=== PATIENT | female | born 1985 | race Caucasian/White ===

== ENCOUNTER 2018-09-17 22:40 | Inpatient (IN) | payer OTHER ==
[2018-09-17] MEDS ORDERED: NACL 0.9% 3 ML SYG IV (23:30)
[2018-09-17] MEDS ORDERED: BISACODYL (EC) 5 MG TAB PO (23:30)
[2018-09-17] MEDS ORDERED: ACETAMINOPHEN 325 MG TAB PO (23:30)
[2018-09-17] MEDS: SOD CHLORIDE 0.9% 1,000 ML IV (23:37)
[2018-09-17] MEDS: ONDANSETRON 4 MG INJ IV (23:41)
[2018-09-17] MEDS: HYDROmorphONE 0.5 MG/0.5 ML SYG IV (23:43)
[2018-09-17 23:54] LABS: ADD MAN DIFF? NO
[2018-09-17 23:55] LABS: BASOPHILS % 0.4 % (0.0-2.0); EOSINOPHILS # 0.1 10^3/ul (0.0-0.5); EOSINOPHILS % 1.1 % (0.0-7.0); HEMATOCRIT 39.2 % (37.0-47.0); HEMOGLOBIN 12.6 g/dl (12.0-16.0); LYMPHOCYTES # 1.6 10^3/ul (0.8-2.9); LYMPHOCYTES % 14.5 % (15.0-51.0); MEAN CORPUSCULAR HGB CONC 32.1 g/dl (32.0-37.0); MEAN CORPUSCULAR VOLUME 87.1 fl (82.0-101.0); MEAN PLATELET VOLUME 9.8 fl (7.4-10.4); MONOCYTES % 8.8 % (0.0-11.0); NEUTROPHIL # 8.2 10^3/ul (1.6-7.5); NEUTROPHILS % 74.4 % (39.0-77.0); PLATELET COUNT 316 10^3/UL (140-415); RED CELL DISTRIBUTION WIDTH 15.1 % (11.5-14.5)
[2018-09-18 00:16] LABS: AMYLASE 441 U/L (11-123)
[2018-09-18 00:20] LABS: ALANINE AMINOTRANSFERASE 82 IU/L (13-69); ALBUMIN 4.2 g/dl (3.3-4.9); ALBUMIN/GLOBULIN RATIO 1.13; ALKALINE PHOSPHATASE 83 IU/L (42-121); ANION GAP 12 (5-13); ASPARTATE AMINO TRANSFERASE 113 IU/L (15-46); BLOOD UREA NITROGEN 9 mg/dl (7-20); CALCIUM 9.4 mg/dl (8.4-10.2); CARBON DIOXIDE 27 mmol/L (21-31); CHLORIDE 100 mmol/L (97-110); CHOL/HDL RATIO 1.7 RATIO; CHOLESTEROL 178 mg/dl (100-200); CREATININE 0.42 mg/dl (0.44-1.00); Estimated GFR > 60 mL/min (>60); GLUCOSE 151 mg/dl (70-220); HDL CHOLESTEROL 103 mg/dl (34-82); LDL CHOLESTEROL,CALCULATED 56 mg/dl; MAGNESIUM 1.9 mg/dl (1.7-2.5); POTASSIUM 3.8 mmol/L (3.5-5.1); SODIUM 139 mmol/L (135-144); TOTAL PROTEIN 7.9 g/dl (6.1-8.1); TRIGLYCERIDES 97 mg/dl (0-149)
[2018-09-18 02:40] LABS: LIPASE 4043 U/L (23-300)
[2018-09-18] MEDS: HYDROmorphONE 1 MG/ML SYG IV ×7 (03:15→22:34)
[2018-09-18] MEDS: CHLORDIAZEPOXIDE 25 MG CAP PO ×4 (03:50→22:33)
[2018-09-18] MEDS ORDERED: LORAZEPAM 2 MG INJ IV (04:00)
[2018-09-18] MEDS: THIAMINE 200 MG INJ IM (04:16)
[2018-09-18] MEDS: DOCUSATE SODIUM 100 MG CAP PO (06:24)
[2018-09-18] MEDS: SOD CHLORIDE 0.9% 1,000 ML IV ×4 (06:24→22:38)
[2018-09-18 06:39] LABS: ADD MAN DIFF? NO
[2018-09-18 06:41] LABS: BASOPHILS % 0.4 % (0.0-2.0); EOSINOPHILS # 0.2 10^3/ul (0.0-0.5); EOSINOPHILS % 1.4 % (0.0-7.0); HEMATOCRIT 38.1 % (37.0-47.0); LYMPHOCYTES # 1.6 10^3/ul (0.8-2.9); LYMPHOCYTES % 14.8 % (15.0-51.0); MEAN CORPUSCULAR HEMOGLOBIN 27.9 pg (29.0-33.0); MEAN CORPUSCULAR HGB CONC 31.5 g/dl (32.0-37.0); MEAN CORPUSCULAR VOLUME 88.6 fl (82.0-101.0); MEAN PLATELET VOLUME 10.4 fl (7.4-10.4); MONOCYTES % 9.7 % (0.0-11.0); NEUTROPHIL # 7.7 10^3/ul (1.6-7.5); NEUTROPHILS % 73.1 % (39.0-77.0); PLATELET COUNT 296 10^3/UL (140-415); RED CELL DISTRIBUTION WIDTH 15.6 % (11.5-14.5)
[2018-09-18 06:41] LABS: WHITE BLOOD COUNT 10.5 10^3/ul (4.8-10.8)
[2018-09-18 07:07] LABS: ALANINE AMINOTRANSFERASE 76 IU/L (13-69); ALBUMIN/GLOBULIN RATIO 1.17; ALKALINE PHOSPHATASE 72 IU/L (42-121); ANION GAP 11 (5-13); ASPARTATE AMINO TRANSFERASE 100 IU/L (15-46); BILIRUBIN,INDIRECT 0.9 mg/dl (0-1.1); BILIRUBIN,TOTAL 0.9 mg/dl (0.2-1.3); BLOOD UREA NITROGEN 11 mg/dl (7-20); CALCIUM 9.2 mg/dl (8.4-10.2); CARBON DIOXIDE 29 mmol/L (21-31); CHLORIDE 101 mmol/L (97-110); CREATININE 0.46 mg/dl (0.44-1.00); Estimated GFR > 60 mL/min (>60); GLUCOSE 134 mg/dl (70-220); SODIUM 141 mmol/L (135-144); TOTAL PROTEIN 7.4 g/dl (6.1-8.1)
[2018-09-18 07:21] LABS: LIPASE 2944 U/L (23-300)
[2018-09-18 07:49] LABS: HEMOGLOBIN A1C 5.3 % (0-5.9)
[2018-09-18] MEDS: MULTIVITAMINS THERAPEUTIC TAB PO (08:43)
[2018-09-18] MEDS: FOLIC ACID 1 MG TAB PO (08:43)
[2018-09-18 09:03] LABS: ETHANOL < 10.0 mg/dl (0-0)
[2018-09-18] MEDS: ONDANSETRON 4 MG INJ IV (16:14)
[2018-09-19] MEDS: HYDROmorphONE 1 MG/ML SYG IV ×7 (01:54→21:47)
[2018-09-19] MEDS: CHLORDIAZEPOXIDE 25 MG CAP PO ×5 (04:37→21:47)
[2018-09-19] MEDS: SOD CHLORIDE 0.9% 1,000 ML IV ×4 (05:00→23:14)
[2018-09-19 05:58] LABS: ADD MAN DIFF? NO; BASOPHILS % 0.4 % (0.0-2.0); EOSINOPHILS # 0.2 10^3/ul (0.0-0.5); EOSINOPHILS % 2.5 % (0.0-7.0); HEMATOCRIT 32.4 % (37.0-47.0); HEMOGLOBIN 10.3 g/dl (12.0-16.0); LYMPHOCYTES # 2.2 10^3/ul (0.8-2.9); LYMPHOCYTES % 23.2 % (15.0-51.0); MEAN CORPUSCULAR HEMOGLOBIN 28.5 pg (29.0-33.0); MEAN CORPUSCULAR HGB CONC 31.8 g/dl (32.0-37.0); MEAN CORPUSCULAR VOLUME 89.5 fl (82.0-101.0); MEAN PLATELET VOLUME 10.6 fl (7.4-10.4); MONOCYTE # 0.8 10^3/ul (0.3-0.9); MONOCYTES % 8.4 % (0.0-11.0); NEUTROPHILS % 64.9 % (39.0-77.0); PLATELET COUNT 262 10^3/UL (140-415); RED BLOOD COUNT 3.62 10^6/ul (4.20-5.40); RED CELL DISTRIBUTION WIDTH 15.4 % (11.5-14.5)
[2018-09-19 05:58] LABS: WHITE BLOOD COUNT 9.3 10^3/ul (4.8-10.8)
[2018-09-19 06:41] LABS: AMYLASE 217 U/L (11-123)
[2018-09-19 06:43] LABS: LIPASE 1337 U/L (23-300)
[2018-09-19 06:49] LABS: PHOSPHORUS 4.6 mg/dl (2.5-4.9)
[2018-09-19 06:49] LABS: MAGNESIUM 1.9 mg/dl (1.7-2.5)
[2018-09-19 06:51] LABS: ALANINE AMINOTRANSFERASE 63 IU/L (13-69); ALBUMIN 3.4 g/dl (3.3-4.9); ALBUMIN/GLOBULIN RATIO 1.06; ALKALINE PHOSPHATASE 63 IU/L (42-121); ANION GAP 12 (5-13); ASPARTATE AMINO TRANSFERASE 54 IU/L (15-46); BILIRUBIN,INDIRECT 0.7 mg/dl (0-1.1); BILIRUBIN,TOTAL 0.7 mg/dl (0.2-1.3); BLOOD UREA NITROGEN 12 mg/dl (7-20); CALCIUM 8.4 mg/dl (8.4-10.2); CARBON DIOXIDE 23 mmol/L (21-31); CHLORIDE 103 mmol/L (97-110); Estimated GFR > 60 mL/min (>60); GLUCOSE 80 mg/dl (70-220); POTASSIUM 3.4 mmol/L (3.5-5.1); SODIUM 138 mmol/L (135-144); TOTAL PROTEIN 6.6 g/dl (6.1-8.1)
[2018-09-19 07:04] LABS: C-REACTIVE PROTEIN 13.2 mg/dl (0.0-0.9)
[2018-09-19] MEDS: MULTIVITAMINS THERAPEUTIC TAB PO (08:39)
[2018-09-19] MEDS: FOLIC ACID 1 MG TAB PO (08:39)
[2018-09-19] MEDS: THIAMINE 200 MG INJ IM (09:49)
[2018-09-19] MEDS: POTASSIUM CHLORIDE 100 ML IVPB (11:15)
[2018-09-19] MEDS: ONDANSETRON 4 MG INJ IV ×2 (14:48→21:47)
[2018-09-20] MEDS: HYDROmorphONE 1 MG/ML SYG IV ×5 (01:08→15:21)
[2018-09-20] MEDS: DOCUSATE SODIUM 100 MG CAP PO (01:08)
[2018-09-20] MEDS: ONDANSETRON 4 MG INJ IV ×2 (05:13→12:23)
[2018-09-20] MEDS: SOD CHLORIDE 0.9% 1,000 ML IV ×3 (05:13→17:44)
[2018-09-20] MEDS: CHLORDIAZEPOXIDE 25 MG CAP PO ×3 (05:14→12:22)
[2018-09-20 06:12] LABS: ADD MAN DIFF? NO
[2018-09-20 06:33] LABS: WHITE BLOOD COUNT 8.6 10^3/ul (4.8-10.8)
[2018-09-20 06:33] LABS: BASOPHILS % 0.3 % (0.0-2.0); EOSINOPHILS # 0.2 10^3/ul (0.0-0.5); EOSINOPHILS % 2.6 % (0.0-7.0); HEMATOCRIT 31.5 % (37.0-47.0); LYMPHOCYTES # 1.8 10^3/ul (0.8-2.9); LYMPHOCYTES % 20.5 % (15.0-51.0); MEAN CORPUSCULAR HEMOGLOBIN 28.6 pg (29.0-33.0); MEAN CORPUSCULAR HGB CONC 31.7 g/dl (32.0-37.0); MEAN PLATELET VOLUME 10.5 fl (7.4-10.4); MONOCYTE # 0.7 10^3/ul (0.3-0.9); MONOCYTES % 8.2 % (0.0-11.0); NEUTROPHIL # 5.8 10^3/ul (1.6-7.5); NEUTROPHILS % 67.6 % (39.0-77.0); PLATELET COUNT 270 10^3/UL (140-415); RED CELL DISTRIBUTION WIDTH 15.2 % (11.5-14.5)
[2018-09-20 06:49] LABS: ALANINE AMINOTRANSFERASE 58 IU/L (13-69); ALBUMIN 3.4 g/dl (3.3-4.9); ALBUMIN/GLOBULIN RATIO 1.03; ALKALINE PHOSPHATASE 71 IU/L (42-121); ANION GAP 13 (5-13); ASPARTATE AMINO TRANSFERASE 58 IU/L (15-46); BILIRUBIN,INDIRECT 0.4 mg/dl (0-1.1); BILIRUBIN,TOTAL 0.4 mg/dl (0.2-1.3); BLOOD UREA NITROGEN 7 mg/dl (7-20); CALCIUM 8.7 mg/dl (8.4-10.2); CARBON DIOXIDE 24 mmol/L (21-31); CHLORIDE 102 mmol/L (97-110); Estimated GFR > 60 mL/min (>60); GLUCOSE 81 mg/dl (70-220); POTASSIUM 3.5 mmol/L (3.5-5.1); SODIUM 139 mmol/L (135-144); TOTAL PROTEIN 6.7 g/dl (6.1-8.1)
[2018-09-20 07:04] LABS: LIPASE 1075 U/L (23-300)
[2018-09-20 07:04] LABS: AMYLASE 116 U/L (11-123)
[2018-09-20 07:06] LABS: MAGNESIUM 1.9 mg/dl (1.7-2.5)
[2018-09-20] MEDS: MULTIVITAMINS THERAPEUTIC TAB PO (09:00)
[2018-09-20] MEDS: FOLIC ACID 1 MG TAB PO (09:00)
[2018-09-20] MEDS: THIAMINE 200 MG INJ IM (12:27)
== END 2018-09-20 18:37 | disposition home or self-care (01) | DRG 440 ==
LOC: 2NE 22:40
DX: K85.20 Alcohol induced acute pancreatitis without necrosis or infection (principal); E66.01 Morbid (severe) obesity due to excess calories; F10.20 Alcohol dependence, uncomplicated; Y90.0 Blood alcohol level of less than 20 mg/100 ml; Z68.39 Body mass index [BMI] 39.0-39.9, adult; Z90.49 Acquired absence of other specified parts of digestive tract
CPT/HCPCS: 80053; 80061; 80307; 82150; 83036; 83690; 83735; 84100; 84443; 85025; 86140

== ENCOUNTER 2018-11-09 20:10 | Inpatient (IN) | payer OTHER ==
[2018-11-09] MEDS: ONDANSETRON 4 MG INJ IV (20:17)
[2018-11-09] MEDS: HYDROmorphONE 1 MG/ML SYG IV ×2 (20:17→22:46)
[2018-11-09] MEDS ORDERED: ONDANSETRON 4 MG INJ IV ×2 (20:30→21:30)
[2018-11-09] MEDS ORDERED: ACETAMINOPHEN 325 MG TAB PO (20:30)
[2018-11-09] MEDS ORDERED: DOCUSATE SODIUM 100 MG CAP PO (21:30)
[2018-11-09] MEDS ORDERED: NACL 0.9% 3 ML SYG IV (21:30)
[2018-11-09] MEDS ORDERED: HYDROmorphONE 0.5 MG/0.5 ML SYG IV (21:30)
[2018-11-09] MEDS ORDERED: BISACODYL (EC) 5 MG TAB PO (21:30)
[2018-11-09] MEDS ORDERED: hydrALAzine 20 MG INJ IV (22:30)
[2018-11-09] MEDS: MULTIVITAMINS 10 ML, THIAMINE 100 MG, FOLIC ACID 1 MG in SOD CHLORIDE 0.9% 1,000 ML IVPB (22:57)
[2018-11-09] MEDS: AMLODIPINE 2.5 MG TAB PO (23:28)
[2018-11-09] MEDS: METOCLOPRAMIDE 10 MG INJ IV (23:28)
[2018-11-10 00:02] LABS: ADD MAN DIFF? NO
[2018-11-10 00:04] LABS: BASOPHIL # 0.1 10^3/ul (0.0-0.1); BASOPHILS % 0.4 % (0.0-2.0); EOSINOPHILS # 0.1 10^3/ul (0.0-0.5); EOSINOPHILS % 0.8 % (0.0-7.0); HEMATOCRIT 38.5 % (37.0-47.0); HEMOGLOBIN 12.7 g/dl (12.0-16.0); LYMPHOCYTES # 1.5 10^3/ul (0.8-2.9); LYMPHOCYTES % 10.8 % (15.0-51.0); MEAN CORPUSCULAR HEMOGLOBIN 29.2 pg (29.0-33.0); MEAN CORPUSCULAR VOLUME 88.5 fl (82.0-101.0); MEAN PLATELET VOLUME 9.4 fl (7.4-10.4); MONOCYTE # 0.8 10^3/ul (0.3-0.9); MONOCYTES % 5.6 % (0.0-11.0); NEUTROPHIL # 11.2 10^3/ul (1.6-7.5); NEUTROPHILS % 81.8 % (39.0-77.0); PLATELET COUNT 331 10^3/UL (140-415); RED BLOOD COUNT 4.35 10^6/ul (4.20-5.40); RED CELL DISTRIBUTION WIDTH 13.8 % (11.5-14.5)
[2018-11-10 00:04] LABS: WHITE BLOOD COUNT 13.7 10^3/ul (4.8-10.8)
[2018-11-10 00:23] LABS: ALANINE AMINOTRANSFERASE 136 IU/L (13-69); ALKALINE PHOSPHATASE 141 IU/L (42-121); ANION GAP 11 (5-13); ASPARTATE AMINO TRANSFERASE 260 IU/L (15-46); BILIRUBIN,INDIRECT 1.4 mg/dl (0-1.1); BLOOD UREA NITROGEN 9 mg/dl (7-20); CALCIUM 9.4 mg/dl (8.4-10.2); CARBON DIOXIDE 26 mmol/L (21-31); CHLORIDE 99 mmol/L (97-110); CREATININE 0.54 mg/dl (0.44-1.00); Estimated GFR > 60 mL/min (>60); GLUCOSE 148 mg/dl (70-220); SODIUM 136 mmol/L (135-144)
[2018-11-10 00:24] LABS: ALBUMIN 4.4 g/dl (3.3-4.9); ALBUMIN/GLOBULIN RATIO 1.04; BILIRUBIN,TOTAL 1.4 mg/dl (0.2-1.3); TOTAL PROTEIN 8.6 g/dl (6.1-8.1)
[2018-11-10 00:26] LABS: ETHANOL < 10.0 mg/dl (0-0)
[2018-11-10 00:46] LABS: LIPASE 4360 U/L (23-300)
[2018-11-10] MEDS: HYDROmorphONE 1 MG/ML SYG IV ×7 (02:24→22:46)
[2018-11-10] MEDS: CHLORDIAZEPOXIDE 25 MG CAP PO ×4 (02:26→21:13)
[2018-11-10] MEDS: CIPROFLOXACIN 250 MG TAB PO ×3 (02:26→17:31)
[2018-11-10] MEDS: SOD CHLORIDE 0.9% 1,000 ML IV ×5 (03:53→23:53)
[2018-11-10] MEDS: ENALAPRILAT 1.25 MG INJ IV (04:17)
[2018-11-10] MEDS: ONDANSETRON 4 MG INJ IV ×2 (04:38→14:24)
[2018-11-10 05:49] LABS: AMPHETAMINE/METHAMPHETAMINE Negative (NEGATIVE); BARBITURATES Negative (NEGATIVE); BENZODIAZEPINES Negative (NEGATIVE); CANNABINOIDS Positive (NEGATIVE); COCAINE Negative (NEGATIVE); OPIATES Positive (NEGATIVE)
[2018-11-10 06:59] LABS: ADD MAN DIFF? NO
[2018-11-10 07:03] LABS: WHITE BLOOD COUNT 12.3 10^3/ul (4.8-10.8)
[2018-11-10 07:03] LABS: BASOPHIL # 0.1 10^3/ul (0.0-0.1); BASOPHILS % 0.4 % (0.0-2.0); EOSINOPHILS # 0.2 10^3/ul (0.0-0.5); EOSINOPHILS % 1.2 % (0.0-7.0); HEMATOCRIT 38.5 % (37.0-47.0); HEMOGLOBIN 12.5 g/dl (12.0-16.0); LYMPHOCYTES # 1.1 10^3/ul (0.8-2.9); LYMPHOCYTES % 8.7 % (15.0-51.0); MEAN CORPUSCULAR HEMOGLOBIN 28.9 pg (29.0-33.0); MEAN CORPUSCULAR HGB CONC 32.5 g/dl (32.0-37.0); MEAN CORPUSCULAR VOLUME 89.1 fl (82.0-101.0); MEAN PLATELET VOLUME 10.3 fl (7.4-10.4); MONOCYTE # 0.7 10^3/ul (0.3-0.9); MONOCYTES % 5.4 % (0.0-11.0); NEUTROPHIL # 10.3 10^3/ul (1.6-7.5); NEUTROPHILS % 83.5 % (39.0-77.0); PLATELET COUNT 326 10^3/UL (140-415); RED BLOOD COUNT 4.32 10^6/ul (4.20-5.40); RED CELL DISTRIBUTION WIDTH 13.8 % (11.5-14.5)
[2018-11-10 07:29] LABS: ALANINE AMINOTRANSFERASE 130 IU/L (13-69); ALBUMIN 4.3 g/dl (3.3-4.9); ALBUMIN/GLOBULIN RATIO 1.16; ALKALINE PHOSPHATASE 123 IU/L (42-121); ANION GAP 15 (5-13); ASPARTATE AMINO TRANSFERASE 197 IU/L (15-46); BILIRUBIN,INDIRECT 1.5 mg/dl (0-1.1); BILIRUBIN,TOTAL 1.5 mg/dl (0.2-1.3); BLOOD UREA NITROGEN 10 mg/dl (7-20); CALCIUM 9.3 mg/dl (8.4-10.2); CARBON DIOXIDE 22 mmol/L (21-31); CHLORIDE 100 mmol/L (97-110); CREATININE 0.55 mg/dl (0.44-1.00); Estimated GFR > 60 mL/min (>60); GLUCOSE 169 mg/dl (70-220); POTASSIUM 3.5 mmol/L (3.5-5.1); SODIUM 137 mmol/L (135-144)
[2018-11-10 07:48] LABS: LIPASE 3255 U/L (23-300)
[2018-11-10] MEDS: IOHEXOL 14.3 MG(I)/ML (ADULT) BTL PO (08:55)
[2018-11-10] MEDS: FOLIC ACID 1 MG TAB PO (08:59)
[2018-11-10] MEDS: MULTIVITAMINS THERAPEUTIC TAB PO (08:59)
[2018-11-10] MEDS: THIAMINE 100 MG TAB PO (08:59)
[2018-11-10] MEDS: IOHEXOL 300MG/ML 150 ML BTL (10:29)
[2018-11-10] MEDS: SOD CHLORIDE 0.9% 100 ML (10:29)
[2018-11-10] MEDS: ACETAMINOPHEN 325 MG TAB PO (10:43)
[2018-11-10] MEDS: LORAZEPAM 2 MG INJ IV ×3 (10:43→21:13)
[2018-11-10] MEDS: PIPER-TAZO 3.375 GM IV (PMX) 100 ML IVPB ×2 (16:44→22:23)
[2018-11-11] MEDS: CHLORDIAZEPOXIDE 25 MG CAP PO ×6 (00:27→23:35)
[2018-11-11] MEDS: LORAZEPAM 2 MG INJ IV ×6 (00:30→23:35)
[2018-11-11] MEDS: HYDROmorphONE 1 MG/ML SYG IV ×7 (01:55→21:41)
[2018-11-11] MEDS: SOD CHLORIDE 0.9% 1,000 ML IV ×4 (01:56→20:18)
[2018-11-11] MEDS: PIPER-TAZO 3.375 GM IV (PMX) 100 ML IVPB ×3 (05:04→21:56)
[2018-11-11] MEDS: CIPROFLOXACIN 250 MG TAB PO ×2 (05:04→16:50)
[2018-11-11 07:22] LABS: ADD MAN DIFF? NO
[2018-11-11 07:26] LABS: BASOPHIL # 0.1 10^3/ul (0.0-0.1); BASOPHILS % 0.4 % (0.0-2.0); EOSINOPHILS # 0.2 10^3/ul (0.0-0.5); EOSINOPHILS % 1.4 % (0.0-7.0); HEMATOCRIT 35.3 % (37.0-47.0); HEMOGLOBIN 11.6 g/dl (12.0-16.0); LYMPHOCYTES # 1.3 10^3/ul (0.8-2.9); LYMPHOCYTES % 9.7 % (15.0-51.0); MEAN CORPUSCULAR HEMOGLOBIN 29.3 pg (29.0-33.0); MEAN CORPUSCULAR HGB CONC 32.9 g/dl (32.0-37.0); MEAN CORPUSCULAR VOLUME 89.1 fl (82.0-101.0); MEAN PLATELET VOLUME 9.8 fl (7.4-10.4); MONOCYTE # 0.9 10^3/ul (0.3-0.9); MONOCYTES % 6.3 % (0.0-11.0); NEUTROPHIL # 11.2 10^3/ul (1.6-7.5); NEUTROPHILS % 81.4 % (39.0-77.0); PLATELET COUNT 292 10^3/UL (140-415); RED BLOOD COUNT 3.96 10^6/ul (4.20-5.40); RED CELL DISTRIBUTION WIDTH 13.9 % (11.5-14.5)
[2018-11-11 07:26] LABS: WHITE BLOOD COUNT 13.7 10^3/ul (4.8-10.8)
[2018-11-11 07:52] LABS: ALANINE AMINOTRANSFERASE 113 IU/L (13-69); ALBUMIN 3.8 g/dl (3.3-4.9); ALKALINE PHOSPHATASE 129 IU/L (42-121); ANION GAP 11 (5-13); ASPARTATE AMINO TRANSFERASE 114 IU/L (15-46); BILIRUBIN,INDIRECT 0.8 mg/dl (0-1.1); BILIRUBIN,TOTAL 0.8 mg/dl (0.2-1.3); BLOOD UREA NITROGEN 8 mg/dl (7-20); CALCIUM 8.8 mg/dl (8.4-10.2); CARBON DIOXIDE 23 mmol/L (21-31); CHLORIDE 103 mmol/L (97-110); CREATININE 0.48 mg/dl (0.44-1.00); Estimated GFR > 60 mL/min (>60); GLUCOSE 116 mg/dl (70-220); POTASSIUM 3.8 mmol/L (3.5-5.1); SODIUM 137 mmol/L (135-144); TOTAL PROTEIN 7.6 g/dl (6.1-8.1)
[2018-11-11] MEDS: FOLIC ACID 1 MG TAB PO (08:53)
[2018-11-11] MEDS: THIAMINE 100 MG TAB PO (08:53)
[2018-11-11] MEDS: MULTIVITAMINS THERAPEUTIC TAB PO (08:53)
[2018-11-12] MEDS: HYDROmorphONE 1 MG/ML SYG IV ×7 (00:48→20:04)
[2018-11-12] MEDS: SOD CHLORIDE 0.9% 1,000 ML IV ×3 (03:56→22:00)
[2018-11-12 04:54] LABS: ADD MAN DIFF? NO
[2018-11-12 05:00] LABS: BASOPHIL # 0.1 10^3/ul (0.0-0.1); BASOPHILS % 0.5 % (0.0-2.0); EOSINOPHILS # 0.3 10^3/ul (0.0-0.5); EOSINOPHILS % 2.7 % (0.0-7.0); HEMATOCRIT 32.3 % (37.0-47.0); HEMOGLOBIN 10.3 g/dl (12.0-16.0); LYMPHOCYTES # 1.3 10^3/ul (0.8-2.9); LYMPHOCYTES % 13.7 % (15.0-51.0); MEAN CORPUSCULAR HEMOGLOBIN 28.9 pg (29.0-33.0); MEAN CORPUSCULAR HGB CONC 31.9 g/dl (32.0-37.0); MEAN CORPUSCULAR VOLUME 90.7 fl (82.0-101.0); MEAN PLATELET VOLUME 9.7 fl (7.4-10.4); MONOCYTE # 0.7 10^3/ul (0.3-0.9); MONOCYTES % 6.8 % (0.0-11.0); NEUTROPHIL # 7.3 10^3/ul (1.6-7.5); NEUTROPHILS % 75.5 % (39.0-77.0); PLATELET COUNT 277 10^3/UL (140-415); RED BLOOD COUNT 3.56 10^6/ul (4.20-5.40); RED CELL DISTRIBUTION WIDTH 13.9 % (11.5-14.5)
[2018-11-12 05:00] LABS: WHITE BLOOD COUNT 9.7 10^3/ul (4.8-10.8)
[2018-11-12] MEDS: PIPER-TAZO 3.375 GM IV (PMX) 100 ML IVPB ×3 (05:16→21:32)
[2018-11-12] MEDS: CIPROFLOXACIN 250 MG TAB PO (05:16)
[2018-11-12 05:29] LABS: ALANINE AMINOTRANSFERASE 85 IU/L (13-69); ALBUMIN 3.4 g/dl (3.3-4.9); ALBUMIN/GLOBULIN RATIO 0.91; ALKALINE PHOSPHATASE 100 IU/L (42-121); ANION GAP 7 (5-13); ASPARTATE AMINO TRANSFERASE 69 IU/L (15-46); BILIRUBIN,INDIRECT 0.5 mg/dl (0-1.1); BILIRUBIN,TOTAL 0.5 mg/dl (0.2-1.3); BLOOD UREA NITROGEN 7 mg/dl (7-20); CALCIUM 8.7 mg/dl (8.4-10.2); CARBON DIOXIDE 26 mmol/L (21-31); CHLORIDE 106 mmol/L (97-110); CREATININE 0.45 mg/dl (0.44-1.00); Estimated GFR > 60 mL/min (>60); GLUCOSE 137 mg/dl (70-220); SODIUM 139 mmol/L (135-144); TOTAL PROTEIN 7.1 g/dl (6.1-8.1)
[2018-11-12 05:30] LABS: LIPASE 890 U/L (23-300)
[2018-11-12] MEDS: FOLIC ACID 1 MG TAB PO (09:00)
[2018-11-12] MEDS: MULTIVITAMINS THERAPEUTIC TAB PO (09:00)
[2018-11-12] MEDS: THIAMINE 100 MG TAB PO (09:00)
[2018-11-12] MEDS: DOCUSATE SODIUM 100 MG CAP PO ×2 (11:00→20:02)
[2018-11-12] MEDS ORDERED: HYDROmorphONE 0.5 MG/0.5 ML SYG (12:00)
[2018-11-12] MEDS ORDERED: HYDROmorphONE 1 MG/ML SYG (12:15)
[2018-11-12] MEDS: HYDROCODONE/APAP (7.5/325) TAB PO ×2 (12:18→21:32)
[2018-11-12] MEDS: LORAZEPAM 2 MG INJ IV ×2 (13:29→22:46)
[2018-11-12] MEDS: CHLORDIAZEPOXIDE 25 MG CAP PO ×3 (13:33→20:02)
[2018-11-13] MEDS: HYDROmorphONE 1 MG/ML SYG IV ×6 (00:41→23:18)
[2018-11-13] MEDS: SOD CHLORIDE 0.9% 1,000 ML IV ×3 (03:24→21:16)
[2018-11-13] MEDS: PIPER-TAZO 3.375 GM IV (PMX) 100 ML IVPB ×3 (05:47→21:16)
[2018-11-13 06:01] LABS: ADD MAN DIFF? NO
[2018-11-13 06:08] LABS: BASOPHIL # 0.1 10^3/ul (0.0-0.1); BASOPHILS % 0.9 % (0.0-2.0); EOSINOPHILS # 0.3 10^3/ul (0.0-0.5); EOSINOPHILS % 3.7 % (0.0-7.0); HEMOGLOBIN 9.7 g/dl (12.0-16.0); LYMPHOCYTES # 1.4 10^3/ul (0.8-2.9); LYMPHOCYTES % 16.9 % (15.0-51.0); MEAN CORPUSCULAR HEMOGLOBIN 28.6 pg (29.0-33.0); MEAN CORPUSCULAR HGB CONC 31.3 g/dl (32.0-37.0); MEAN CORPUSCULAR VOLUME 91.4 fl (82.0-101.0); MEAN PLATELET VOLUME 9.7 fl (7.4-10.4); MONOCYTE # 0.7 10^3/ul (0.3-0.9); MONOCYTES % 8.9 % (0.0-11.0); NEUTROPHIL # 5.5 10^3/ul (1.6-7.5); NEUTROPHILS % 68.7 % (39.0-77.0); PLATELET COUNT 264 10^3/UL (140-415); RED BLOOD COUNT 3.39 10^6/ul (4.20-5.40)
[2018-11-13 06:08] LABS: WHITE BLOOD COUNT 8.1 10^3/ul (4.8-10.8)
[2018-11-13 06:40] LABS: ALANINE AMINOTRANSFERASE 72 IU/L (13-69); ALBUMIN 3.3 g/dl (3.3-4.9); ALBUMIN/GLOBULIN RATIO 0.94; ALKALINE PHOSPHATASE 86 IU/L (42-121); ANION GAP 9 (5-13); ASPARTATE AMINO TRANSFERASE 72 IU/L (15-46); BILIRUBIN,INDIRECT 0.3 mg/dl (0-1.1); BILIRUBIN,TOTAL 0.3 mg/dl (0.2-1.3); BLOOD UREA NITROGEN 4 mg/dl (7-20); CALCIUM 8.3 mg/dl (8.4-10.2); CARBON DIOXIDE 26 mmol/L (21-31); CHLORIDE 107 mmol/L (97-110); CREATININE 0.44 mg/dl (0.44-1.00); Estimated GFR > 60 mL/min (>60); GLUCOSE 125 mg/dl (70-220); POTASSIUM 3.7 mmol/L (3.5-5.1); SODIUM 142 mmol/L (135-144); TOTAL PROTEIN 6.8 g/dl (6.1-8.1)
[2018-11-13] MEDS: HYDROCODONE/APAP (7.5/325) TAB PO ×2 (07:29→17:42)
[2018-11-13] MEDS: FOLIC ACID 1 MG TAB PO (08:43)
[2018-11-13] MEDS: MULTIVITAMINS THERAPEUTIC TAB PO (08:43)
[2018-11-13] MEDS: THIAMINE 100 MG TAB PO (08:43)
[2018-11-13] MEDS: DOCUSATE SODIUM 100 MG CAP PO ×2 (08:43→21:16)
[2018-11-14] MEDS: HYDROmorphONE 1 MG/ML SYG IV (03:44)
[2018-11-14] MEDS: PIPER-TAZO 3.375 GM IV (PMX) 100 ML IVPB (05:49)
[2018-11-14] MEDS: SOD CHLORIDE 0.9% 1,000 ML IV (05:49)
[2018-11-14 06:19] LABS: ADD MAN DIFF? NO
[2018-11-14 06:22] LABS: BASOPHIL # 0.1 10^3/ul (0.0-0.1); BASOPHILS % 0.5 % (0.0-2.0); EOSINOPHILS # 0.2 10^3/ul (0.0-0.5); EOSINOPHILS % 2.2 % (0.0-7.0); HEMATOCRIT 29.3 % (37.0-47.0); HEMOGLOBIN 9.5 g/dl (12.0-16.0); LYMPHOCYTES # 1.4 10^3/ul (0.8-2.9); LYMPHOCYTES % 14.6 % (15.0-51.0); MEAN CORPUSCULAR HEMOGLOBIN 29.8 pg (29.0-33.0); MEAN CORPUSCULAR HGB CONC 32.4 g/dl (32.0-37.0); MEAN CORPUSCULAR VOLUME 91.8 fl (82.0-101.0); MEAN PLATELET VOLUME 10.5 fl (7.4-10.4); MONOCYTE # 0.9 10^3/ul (0.3-0.9); MONOCYTES % 9.2 % (0.0-11.0); NEUTROPHIL # 6.9 10^3/ul (1.6-7.5); NEUTROPHILS % 72.7 % (39.0-77.0); PLATELET COUNT 272 10^3/UL (140-415); RED BLOOD COUNT 3.19 10^6/ul (4.20-5.40); RED CELL DISTRIBUTION WIDTH 14.1 % (11.5-14.5)
[2018-11-14 06:22] LABS: WHITE BLOOD COUNT 9.5 10^3/ul (4.8-10.8)
[2018-11-14 06:43] LABS: ALANINE AMINOTRANSFERASE 67 IU/L (13-69); ALBUMIN 3.2 g/dl (3.3-4.9); ALBUMIN/GLOBULIN RATIO 0.94; ALKALINE PHOSPHATASE 85 IU/L (42-121); AMYLASE 99 U/L (11-123); ANION GAP 8 (5-13); ASPARTATE AMINO TRANSFERASE 57 IU/L (15-46); BILIRUBIN,INDIRECT 0.4 mg/dl (0-1.1); BILIRUBIN,TOTAL 0.4 mg/dl (0.2-1.3); BLOOD UREA NITROGEN 2 mg/dl (7-20); CALCIUM 8.2 mg/dl (8.4-10.2); CARBON DIOXIDE 26 mmol/L (21-31); CHLORIDE 106 mmol/L (97-110); CREATININE 0.46 mg/dl (0.44-1.00); Estimated GFR > 60 mL/min (>60); GLUCOSE 115 mg/dl (70-220); LIPASE 527 U/L (23-300); POTASSIUM 3.1 mmol/L (3.5-5.1); SODIUM 140 mmol/L (135-144); TOTAL PROTEIN 6.6 g/dl (6.1-8.1)
[2018-11-14 06:45] LABS: MAGNESIUM 1.8 mg/dl (1.7-2.5)
[2018-11-14 07:02] LABS: PHOSPHORUS 3.9 mg/dl (2.5-4.9)
[2018-11-14] MEDS: THIAMINE 100 MG TAB PO (08:16)
[2018-11-14] MEDS: POTASSIUM CHLORIDE (SR) 20 MEQ TAB PO (08:17)
[2018-11-14] MEDS: MULTIVITAMINS THERAPEUTIC TAB PO (08:17)
[2018-11-14] MEDS: DOCUSATE SODIUM 100 MG CAP PO (08:17)
[2018-11-14] MEDS: FOLIC ACID 1 MG TAB PO (08:17)
== END 2018-11-14 13:34 | disposition home or self-care (01) | DRG 439 ==
LOC: PP2 21:36 → E/R 20:10 → PP2 20:15
DX: K85.20 Alcohol induced acute pancreatitis without necrosis or infection (principal); K57.32 Diverticulitis of large intestine without perforation or abscess without bleeding; N39.0 Urinary tract infection, site not specified; K52.9 Noninfective gastroenteritis and colitis, unspecified; E66.01 Morbid (severe) obesity due to excess calories; F10.229 Alcohol dependence with intoxication, unspecified; D50.9 Iron deficiency anemia, unspecified; Z68.39 Body mass index [BMI] 39.0-39.9, adult
CPT/HCPCS: 74177; 76705; 80053; 80307; 82150; 83690; 83735; 84100; 85025; 99285-25